=== PATIENT | female | born 2000 | race American Indian/Alaskan Native ===

== ENCOUNTER 2022-04-09 15:46 | Emergency (ER) | payer BC ==
[2022-04-09 20:49] VITALS: BP 147/96
--- NOTE | 2022-04-09 21:10 | Emergency Department Report ---
ED Abdominal Pain HPI - General Chief Complaint: Abdominal Pain Stated Complaint: STOMACH PAIN/PELVIC PAIN Time Seen by Provider: 04/09/22 21:08 Source: patient Mode of arrival: Ambulatory Limitations: No Limitations - History of Present Illness MD Complaint: abdominal pain -[age] year([age]) (2.5) Location: LLQ, suprapubic Radiation: LLQ Quality: cramping, sharp Consistency: constant Improves With: nothing Worsens With: bowel movement Associated Symptoms: denies other symptoms, nausea. denies: vomiting, diarrhea, fever, constipation, dysuria, hematemesis, hematochezia, hematuria, anorexia - Related Data Allergies Allergy/AdvReac Type Severity Reaction Status Date / Time No Known Allergies Allergy Verified 04/09/22 20:29 ED Review of Systems ROS: Stated complaint: STOMACH PAIN/PELVIC PAIN Other details as noted in HPI Comment: All other systems reviewed and negative ED Past Medical Hx - Past Medical History Previous Medical History?: Yes - Surgical History Past Surgical History?: Yes - Social History Smoking Status: Unknown if ever smoked Substance Use Type: None ED Physical Exam - General Limitations: No Limitations ED Course Vital Signs 04/09/22 20:24 Temperature 98.2 F Pulse Rate 65 Respiratory 18 Rate Blood Pressure 147/96 O2 Sat by Pulse 100 Oximetry Critical care attestation.: If time is entered above; I have spent that time in minutes in the direct care of this critically ill patient, excluding procedure time. ED Disposition Condition: Stable Instructions: Abdominal Pain (ED)
[2022-04-09 22:31] LABS: Basophils % (Auto) 0.5 % (0.0-1.8); Eosinophils % (Auto) 0.6 % (0.0-4.3); Hematocrit 39.6 % (30.3-42.9); Hemoglobin 12.9 gm/dl (10.1-14.3); Lymphocytes # (Auto) 2.3 K/mm3 (1.2-5.4); Lymphocytes % (Auto) 39.4 % (13.4-35.0); Mean Corpuscular HGB Conc 33 % (30-34); Mean Corpuscular Volume 86 fl (79-97); Monocytes # (Auto) 0.5 K/mm3 (0.0-0.8); Platelet Count 211 K/mm3 (140-440); Red Blood Count 4.59 M/mm3 (3.65-5.03); Red Cell Distribution Width 14.4 % (13.2-15.2)
[2022-04-09 22:34] LABS: Alanine Aminotransferase 21 units/L (7-56); Albumin 4.6 g/dL (3.9-5); Blood Urea Nitrogen 9 mg/dL (7-17); Calcium 9.9 mg/dL (8.4-10.2); Hemolysis Index 6
[2022-04-09 22:35] LABS: BUN/Creatinine Ratio 15
[2022-04-09 22:49] LABS: Bilirubin,Urine NEG (Negative); Blood,Urine NEG (Negative); Color,Urine Yellow (Yellow); Protein,Urine <15 mg/dL mg/dL (Negative); Urobilinogen,Urine < 2 mg/dL (<2.0)
[2022-04-09 22:55] LABS: Bacteria,Urine 1+ /HPF (Negative); Mucus,Urine FEW /HPF
== END 2022-04-10 02:10 | disposition home or self-care (01) ==
LOC: ED 15:46
DX: R10.32 Left lower quadrant pain (principal)
CPT/HCPCS: 36415; 80053; 81001; 83690; 84703; 85025; 99283